=== PATIENT | male | born 1960 | race Caucasian/White ===

== ENCOUNTER → 2016-03-27 | Outpatient (CLI) | payer OTHER ==
--- NOTE | 2016-03-27 17:17 | REP ---
Clinical: Neck sprain/strain. Technique: AP, lateral, flexion/extension, bilateral oblique, and open-mouth views. Findings: Alignment and lordosis maintained. Advanced multilevel degenerative disc osteophyte complexes noted from the C3 through C7 levels. Findings include osteophytosis endplate sclerosis and disc space narrowing. Spinous processes are intact. Open mouth view demonstrates normal C1-C2 articulation and odontoid process. Prevertebral soft tissues normal. No acute fracture / compression injury or subluxation. Impression: Advanced multilevel degenerative disc osteophyte complexes. Signed by Tay Pandya MD 03/27/2016 05:09 P
--- NOTE | 2016-03-27 17:18 | REP ---
Clinical: Sprain/strain. Technique: AP, lateral, swimmers views. Findings: Alignment and kyphosis maintained. Vertebral bodies are intact and without acute fracture / compression injury or subluxation. Anterior and marginal osteophytes are identified along with endplate sclerosis and minimal disc space narrowing. Impression: Multilevel osteophytic degenerative changes. Signed by Tay Pandya MD 03/27/2016 05:09 P
== END ==
LOC: M WUC 16:37
PROVIDERS: ATTEND Physician Assistant
DX: S16.1XXA Strain of muscle, fascia and tendon at neck level, initial encounter (principal); S29.012A Strain of muscle and tendon of back wall of thorax, initial encounter; X58.XXXA Exposure to other specified factors, initial encounter; Y92.89 Other specified places as the place of occurrence of the external cause; Y93.89 Activity, other specified; Y99.8 Other external cause status

== ENCOUNTER → 2016-04-08 | Outpatient (REF) | payer OTHER | LOC: M LABDRAW1 11:13 | PROVIDERS: ATTEND Physician Assistant | DX: M47.892 Other spondylosis, cervical region (principal) ==

== ENCOUNTER 2016-12-11 10:25 | Emergency (ER) | payer OTHER ==
[~2016-12-11] VITALS: Ht 167.6 cm; Wt 115.9 kg
[2016-12-11] MEDS ORDERED: NAPR500T3 (10:36)
[2016-12-11] MEDS ORDERED: OMEP20CA3 (10:36)
[2016-12-11] MEDS ORDERED: PERCOCET 5MG/325MG TAB PO ONE (12:00)
[2016-12-11] MEDS ORDERED: PERC5TAB12 PO (13:16)
--- NOTE | 2016-12-11 13:36 | REP ---
RIGHT KNEE, FIVE VIEWS: There is no evidence of an acute fracture, dislocation or intrinsic bone disease. IMPRESSION: No fracture or dislocation. Signed by Hayes Ramírez MD 12/11/2016 05:18 P
[2016-12-11 13:43] VITALS: BP 151/68
== END 2016-12-11 13:45 | disposition home or self-care (01) ==
LOC: M ED 10:25
DX: M25.561 Pain in right knee (principal); W01.198A Fall on same level from slipping, tripping and stumbling with subsequent striking against other object, initial encounter; Y92.091 Bathroom in other non-institutional residence as the place of occurrence of the external cause; Y93.E1 Activity, personal bathing and showering; Y99.9 Unspecified external cause status

== ENCOUNTER → 2017-02-03 | Outpatient (CLI) | payer OTHER ==
[~2017-02-03] MED LIST: NAPR500T3; OMEP20CA3; PERC5TAB12 PO
--- NOTE | 2017-02-03 21:44 | ECGEPIP ---
Stationary ECG Study [facility] Test Date: 2017-02-03 Pat Name: KYLIE MCELROY Department: Room: - Gender: M Banquet Cook: ARELY : 1960 Requested By: RAMESH Sutherland Order Number: [id number] Reading MD: Dwight Santillan Measurements Intervals [place] Rate: 75 P: 50 ID: [id number] QRS: 13 QRSD: 108 T: 10 QT: 366 QTc: 410 Interpretive Statements Normal sinus rhythm with sinus arrhythmia Nonspecific T wave abnormality Comparison tracing not on file Electronically Signed On 02-03-2017 21:44:18 EST by Dwight Santillan
== END ==
LOC: M EKG 15:41
PROVIDERS: ATTEND Orthopaedic Surgery
DX: Z01.810 Encounter for preprocedural cardiovascular examination (principal); I49.9 Cardiac arrhythmia, unspecified; M23.221 Derangement of posterior horn of medial meniscus due to old tear or injury, right knee; M22.41 Chondromalacia patellae, right knee

== ENCOUNTER → 2018-01-20 | Outpatient (CLI) | payer OTHER | LOC: M EKG 16:39 | DX: Z01.818 Encounter for other preprocedural examination (principal) | CPT/HCPCS: 93005 ==

== ENCOUNTER 2018-02-01 05:37 | Day surgery (SDC) | payer OTHER ==
[2018-02-01] MEDS: LR 1,000 ML IV (06:44)
[2018-02-01] MEDS ORDERED: LIDOCAINE 2% INJ 100 MG/5 ML SDV (FOR ANES.) As Ordered ×2 (06:53)
[2018-02-01] MEDS ORDERED: PROPOFOL 200 MG/20 ML VIAL As Ordered ×2 (06:53→08:38)
[2018-02-01] MEDS ORDERED: fentaNYL 100 MCG/2 ML INJECTION (J3010) As Ordered ×2 (06:54→08:04)
[2018-02-01] MEDS ORDERED: KETOROLAC 60 MG/2 ML VIAL (J1885) As Ordered (06:54)
[2018-02-01] MEDS ORDERED: dexameTHASONE 4 MG/ML 1ML VIAL (J1100) As Ordered (06:54)
[2018-02-01] MEDS ORDERED: MIDAZOLAM INJ 2 MG/2 ML VIAL (J2250) As Ordered (06:54)
[2018-02-01] MEDS ORDERED: ONDANSETRON 4MG/2ML VIAL (J2405) As Ordered (06:54)
[2018-02-01] MEDS ORDERED: ROCURONIUM BROMIDE 50 MG/5 ML VIAL As Ordered (07:32)
[2018-02-01] MEDS ORDERED: SUCCINYLCHOLINE 100 MG/5 ML SYRINGE (J0330) As Ordered (08:37)
[2018-02-01] MEDS ORDERED: SUGAMMADEX SODIUM 500 MG/5 ML VIAL (BRIDION) As Ordered (08:38)
[2018-02-01] MEDS: BUPIVACAINE HCL 0.5% 30 ML VIAL As Ordered (09:17)
[2018-02-01] MEDS ORDERED: HYDROMORPHONE HCL 0.5 MG/ 0.5 ML SYRINGE (J1170 PER 1) IV ×2 (10:00→11:15)
[2018-02-01] MEDS ORDERED: ONDANSETRON 4MG/2ML VIAL (J2405) IV ×2 (10:00→11:15)
[2018-02-01] MEDS ORDERED: LR 1,000 ML IV ×3 (10:00→11:15)
[2018-02-01] MEDS ORDERED: fentaNYL 100 MCG/2 ML INJECTION (J3010) IV ×2 (10:00→11:15)
[2018-02-01] MEDS: PERCOCET 5MG/325MG TAB PO (10:17)
[2018-02-01] MEDS ORDERED: PERCOCET 5MG/325MG TAB As Ordered (11:04)
[2018-02-01] MEDS ORDERED: PERCOCET 5MG/325MG TAB PO (11:15)
== END 2018-02-01 12:07 | disposition home or self-care (01) ==
LOC: M SDC 05:37
DX: M84.362A Stress fracture, left tibia, initial encounter for fracture (principal); M23.222 Derangement of posterior horn of medial meniscus due to old tear or injury, left knee; M23.201 Derangement of unspecified lateral meniscus due to old tear or injury, left knee; M94.262 Chondromalacia, left knee; M17.12 Unilateral primary osteoarthritis, left knee; K21.9 Gastro-esophageal reflux disease without esophagitis; Z79.899 Other long term (current) drug therapy
CPT/HCPCS: 29855

== ENCOUNTER → 2018-04-26 | Outpatient (CLI) | payer OTHER ==
[~2018-04-26] MED LIST changes: +NAPR-885; -NAPR500T3; +OMEP20CA3 PO; +VITA400C7 PO
--- NOTE | 2018-05-02 10:41 | SLEEPCENT ---
DATE OF PROCEDURE: 04/26/2018 ORDERED BY: TRENTON Dee Nocturnal polysomnography was performed for evaluation of sleep physiology in this patient with a history of excessive somnolence and nonrestorative sleep. 7 hours and 42 minutes of data were reviewed. There were 327 minutes of sleep identified. Sleep latency was prolonged at 30 minutes. Rapid eye movement (REM) latency was prolonged at 115 minutes. Sleep architecture was fair with 4 REM cycles. A period of wake between 3:15 and 4 a.m. resulted in a reduced sleep efficiency of 71%. The patient's electrocardiogram showed sinus rhythm with occasional premature ventricular contractions (PVCs), average heart rate 70 beats per minute. EEG showed reasonably normal waveforms for awake and sleep. There were 61 respiratory events identified of 10 seconds in duration or greater for an apnea-hypopnea index of 11.2. The events were not exclusive to sleep stage nor body posture. Arousals from respiratory events occurred 3.5 times per hour. Oxygen desaturations were seen into the low 80s and remaining measures of sleep physiology were normal. IMPRESSION: Obstructive sleep apnea syndrome (G47.33) apnea-hypopnea index 11.2/hr. RECOMMENDATIONS: The patient should be encouraged to return to the sleep disorder center for pressure therapy. In the interim, alcohol and sedative avoidance should be practiced and caution exercised during the operation of motor vehicles. MADELYND
== END ==
LOC: M SLEEP 19:45
PROVIDERS: ATTEND Physician Assistant
DX: R40.0 Somnolence (principal)

== ENCOUNTER → 2018-06-04 | Outpatient (CLI) | payer OTHER ==
--- NOTE | 2018-06-08 13:22 | SLEEPCENT ---
DATE OF PROCEDURE: 06/04/2018 ORDERED BY: Tay Villa Nocturnal polysomnography was performed for the titration of pressure therapy in this patient with obstructive sleep apnea syndrome and apnea-hypopnea index of 11.2. For testing, the patient was fit with a [employer] Eson nasal mask of medium size and 4 cm of water pressure were applied to the circuit and the lights were extinguished. 7 hours and 57 minutes of data were reviewed. There were 363 minutes of sleep identified. Sleep latency was short at 7.5 minutes. Rapid eye movement (REM) latency was normal at 132 minutes. Sleep architecture was fair. There were 4 brief REM cycles noted. Overall sleep efficiency was 76.8%. The patient's electrocardiogram showed a sinus rhythm with an average heart rate of 70 beats per minute. Electroencephalogram (EEG) showed normal waveforms for awake and sleep. Respiratory events were well palliated with C-PAP at a pressure of +7 and remaining measures of sleep physiology were essentially normal. IMPRESSION: Obstructive sleep apnea syndrome (G47.33). RECOMMENDATION: Nightly use of pressure therapy at 7 cm of water.
== END ==
LOC: M SLEEP 20:00
PROVIDERS: ATTEND Nurse Practitioner Family
DX: G47.33 Obstructive sleep apnea (adult) (pediatric) (principal)

== ENCOUNTER 2019-03-30 05:52 | Emergency (ER) | payer OTHER ==
[~2019-03-30] VITALS: Ht 167.6 cm; Wt 113.6 kg
[~2019-03-30 05:52] MED LIST changes: +OMEP1CAP73; +OMEP1CAP73 PO; -OMEP20CA3; -OMEP20CA3 PO
[2019-03-30] MEDS ORDERED: ACETAMINOPHEN 500 MG TAB PO ONE (07:30)
[2019-03-30 07:32] LABS: BASO % 0.7 % (0.0-1.0); EOS # 0.1 10^3/uL (0.0-0.5); HEMATOCRIT 51.6 % (42.0-52.0); LYMPH # 1.4 10^3/uL (1.5-5.0); MEAN CORPUSCULAR HEMOGLOBIN 30.8 pg (27.0-33.0); MEAN CORPUSCULAR HGB CONC 32.9 g/dl (32.0-36.5); MEAN CORPUSCULAR VOLUME 93.5 fl (80.0-96.0); MONO # 0.6 10^3/uL (0.0-0.8); MONO % 9.8 % (0.0-5.0); NEUTROPHILS % 65.2 % (36.0-66.0); PLATELET COUNT, AUTOMATED 274 10^3/uL (150-450); RED BLOOD COUNT 5.52 10^6/uL (4.30-6.10); WHITE BLOOD COUNT 6.1 10^3/uL (4.0-10.0)
--- NOTE | 2019-03-30 07:45 | REPVR ---
PROCEDURE INFORMATION: Exam: CT Abdomen And Pelvis Without Contrast Exam date and time: 03/30/2019 7:09 AM Age: 58 years old Clinical indication: Abdominal pain; Flank; Left; Additional info: Left fp TECHNIQUE: Imaging protocol: Computed tomography of the abdomen and pelvis without contrast. Radiation optimization: All CT scans at this facility use at least one of these dose optimization techniques: automated exposure control; mA and/or kV adjustment per patient size (includes targeted exams where dose is matched to clinical indication); or iterative reconstruction. COMPARISON: No relevant prior studies available. FINDINGS: Mediastinum: There is a small sliding hiatal hernia. Liver: the liver is heterogeneous and hypoattenuated. Gallbladder and bile ducts: Normal. No calcified stones. No ductal dilation. Pancreas: Normal. No ductal dilation. Spleen: Normal. No splenomegaly. Adrenals: Normal. No mass. Kidneys and ureters: There is a 2-3 mm stone in the left UVJ or layering in the urinary bladder with mild proximal hydronephrosis and hydroureter. Stomach and bowel: Mild sigmoid colon diverticulosis seen. Appendix: No evidence of appendicitis. Intraperitoneal space: Unremarkable. No free air. No significant fluid collection. Vasculature: There is minimal aortic mural calcifications. Lymph nodes: Unremarkable. No enlarged lymph nodes. Bladder: The urinary bladder is contracted limiting its evaluation. Reproductive: Unremarkable as visualized. Bones/joints: Unremarkable. No acute fracture. Soft tissues: Unremarkable. IMPRESSION: 1. 2-3 mm left UVJ versus recently passed stone with mild left-sided hydronephrosis. 2. Mild sigmoid colon diverticulosis. 3. Small sliding hiatal hernia. 4. Fatty infiltration of the liver. Electronically signed by: Keron Pradhan On 03/30/2019 07:45:11 AM
[2019-03-30 08:02] LABS: BLOOD UREA NITROGEN 12 MG/DL (7-18); CALCIUM LEVEL 9.1 MG/DL (8.5-10.1); CARBON DIOXIDE LEVEL 24 MEQ/L (21-32); CHLORIDE LEVEL 110 MEQ/L (98-107); GLOMERULAR FILTRATION RATE > 60.0 (>56); GLUCOSE, FASTING 109 MG/DL (70-100); SODIUM LEVEL 141 MEQ/L (136-145)
[2019-03-30] MEDS ORDERED: KETOROLAC 30 MG/ML VIAL (J1885) IV ONE (08:15)
[2019-03-30] MEDS ORDERED: FLOM0.4C39 PO (08:20)
[2019-03-30] MEDS ORDERED: PERC5TAB12 PO (08:21)
[2019-03-30] MEDS ORDERED: ONDANSETRON 4MG/2ML VIAL (J2405) IV ONE (09:15)
[2019-03-30] MEDS ORDERED: PERCOCET 5MG/325MG TAB PO ONE (09:15)
[2019-03-30 09:51] VITALS: BP 153/80
== END 2019-03-30 09:57 | disposition home or self-care (01) ==
LOC: M ED 05:52
DX: N20.1 Calculus of ureter (principal); K21.9 Gastro-esophageal reflux disease without esophagitis; G47.33 Obstructive sleep apnea (adult) (pediatric); K57.30 Diverticulosis of large intestine without perforation or abscess without bleeding; K44.9 Diaphragmatic hernia without obstruction or gangrene; K76.0 Fatty (change of) liver, not elsewhere classified; Z79.899 Other long term (current) drug therapy
CPT/HCPCS: 74176; 80048; 81001; 85025; 99284; J1885; J2405

== ENCOUNTER 2020-03-01 10:17 | Emergency (ER) | payer OTHER ==
[~2020-03-01] VITALS: Ht 170.2 cm; Wt 113.6 kg
[~2020-03-01 10:17] MED LIST changes: +FLOM0.4C39 PO
[2020-03-01 11:01] LABS: BASO % 0.3 % (0.0-1.0); HEMATOCRIT 46.1 % (42.0-52.0); HEMOGLOBIN 15.6 g/dl (13.5-17.5); LYMPH # 0.6 10^3/uL (1.5-5.0); LYMPH % 10.3 % (24.0-44.0); MEAN CORPUSCULAR HEMOGLOBIN 30.9 pg (27.0-33.0); MEAN CORPUSCULAR HGB CONC 33.8 g/dl (32.0-36.5); MEAN CORPUSCULAR VOLUME 91.3 fl (80.0-96.0); MONO # 0.5 10^3/uL (0.0-0.8); MONO % 7.7 % (0.0-5.0); NEUTROPHILS # 4.9 10^3/uL (1.5-8.5); NEUTROPHILS % 81.4 % (36.0-66.0); PLATELET COUNT, AUTOMATED 250 10^3/uL (150-450); RED BLOOD COUNT 5.05 10^6/uL (4.30-6.10)
--- NOTE | 2020-03-01 11:02 | REP ---
INDICATION: Coronavirus workup. COMPARISON: No comparison chest x-ray. TECHNIQUE: Portable upright AP chest radiograph. FINDINGS: There are increased markings in the left base consistent with an infiltrate. There is platelike atelectasis in the left base as well. A ill-defined small opacityaaaaa is seen in the right perihilar region. Question infiltrate here. Heart size is not enlarged. Pulmonary vasculature is not increased. Pleural angles are sharp.. IMPRESSION: Infiltrate and platelike atelectasis left base. Question subtle infiltrate right perihilar region.. <Electronically signed by Mickey Cai > 03/01/20 [id number]
[2020-03-01 11:26] LABS: ALBUMIN 3.2 GM/DL (3.2-5.2); ALT/SGPT 35 U/L (12-78); BILIRUBIN,TOTAL 0.9 MG/DL (0.2-1.0); BLOOD UREA NITROGEN 22 MG/DL (7-18); C REACTIVE PROTEIN QUANTITATIV 6.26 MG/DL (0.00-0.30); CALCIUM LEVEL 9.3 MG/DL (8.8-10.2); CARBON DIOXIDE LEVEL 25 MEQ/L (21-32); CHLORIDE LEVEL 108 MEQ/L (98-107); CK-MB VALUE MASS < 1.0 NG/ML (<3.6); CPK CREATINE PHOSPHOKINASE 182 U/L (39-308); CREATININE FOR GFR 1.07 MG/DL (0.70-1.30); FERRITIN 601 NG/ML (26-388); GLOMERULAR FILTRATION RATE > 60.0 (>49); GLUCOSE, FASTING 123 MG/DL (70-100); LDH LACTATE DEHYDROGENASE 609 U/L (87-241); MB/CK RELATIVE INDEX 0.55 (< OR =4); POTASSIUM SERUM 4.8 MEQ/L (3.5-5.1); SODIUM LEVEL 139 MEQ/L (136-145); TOTAL PROTEIN 7.3 GM/DL (6.4-8.2); TROPONIN I < 0.02 NG/ML (< 0.10)
[2020-03-01] MEDS ORDERED: NS 1,000 ML IV SCH (12:50)
[2020-03-01] MEDS ORDERED: diphenhydrAMINE 50MG/ML VIAL (J1200) IV PRN (13:00)
[2020-03-01] MEDS ORDERED: ALBUTEROL 90 MCG/ACT 8GM HFA INHALER INH PRN (13:00)
[2020-03-01] MEDS ORDERED: methylPREDNISolone 125MG 2ML VIAL IV PRN (13:00)
[2020-03-01] MEDS ORDERED: CASIRIVIMAB (REGN10933) 1,200 MG, IMDEVIMAB (REGN10987) 1,200 MG in NS 230 ML IV ONE (13:00)
[2020-03-01] MEDS ORDERED: EPINEPHrine INJ 1 MG/ML 1ML AMP IM PRN (13:00)
[2020-03-01] MEDS ORDERED: ALBUTEROL SULFATE 2.5 MG/0.5 ML INH NEB SOLN INH PRN (13:00)
[2020-03-01 14:00] VITALS: BP 136/76
== END 2020-03-01 15:00 | disposition other institution (70) ==
LOC: M ED 10:17
DX: U07.1 COVID-19 (principal); J18.9 Pneumonia, unspecified organism; K21.9 Gastro-esophageal reflux disease without esophagitis

== ENCOUNTER 2020-03-01 14:38 | Outpatient (CLI) | payer OTHER ==
[2020-03-01] VITALS (7 sets, daily range): BP systolic 123–136; BP diastolic 58–67
[~2020-03-01 14:38] MED LIST changes: +ALBUTEROL 90 MCG/ACT 8GM HFA INHALER INH PRN; +ALBUTEROL SULFATE 2.5 MG/0.5 ML INH NEB SOLN INH PRN; +CASIRIVIMAB (REGN10933) 1,200 MG, IMDEVIMAB (REGN10987) 1,200 MG in NS 230 ML IV ONE; +EPINEPHrine INJ 1 MG/ML 1ML AMP IM PRN; +NS 1,000 ML IV SCH; +diphenhydrAMINE 50MG/ML VIAL (J1200) IV PRN; +methylPREDNISolone 125MG 2ML VIAL IV PRN
--- NOTE | 2020-03-01 15:34 | IPNPDOC ---
Subjective Date Seen The patient was seen on 03/01/20. Subjective Chief Complaint/HPI Mr. Kaur is a 59 year old male here with COVID pneumonia. On 02/20/2020, he had dyspnea and malaise and tested positive for COVID on that day. He went home to self isolated. He comes to our ER today for worsening dyspnea at rest and on exertion. He had a dry cough and reported fever of 100.4 at home. Fever resolved with Tylenol. While here, he has had no fever. He breaths at room air with pulse ox of 94. When ambulates, he had a pulse ox of 92 to 94 as well. No leukocytosis, but CRP, ferritin, LDH, and D-dimer were elevated. I discussed with him about Bamlanivimab-Casirivimab infusion and the risks involved including allergic reaction. He is agreeable to the transfusion. He signed consent and will be receiving the transfusion in the ICU. PMH 1. GERD PSH 1. Bilateral Knee Surgery Social history -Tobacco: Denies ever smoking -Alcohol: Occasional, last drink was about 1 month ago -Illicit drugs: Denies Family history -Father: Heart disease -Mother: COPD Allergies: NKDA Home medication: Omeprazole 20mg PO Daily PRN heart burn Constitutional: Reports: Fever, Malaise Eyes: Denies: Pain ENT: Denies: Sore Throat Skin: Denies: Rash Pulmonary: Reports: Dyspnea, Cough Cardiovascular: Denies: Chest Pain, Lt Headedness Gastrointestinal: Denies: Abdominal Pain Genitourinary: Denies: Dysuria Neurological: Denies: Change in speech, Confusion Objective Physical Examination General Exam: Positive: Alert, Cooperative, No Acute Distress Eye Exam: Positive: EOMI; Negative: Sclera icteric ENT Exam: Positive: Tongue Midline Neck Exam: Positive: Supple Chest Exam: Positive: Clear to auscultation Heart Exam: Positive: Rate Normal, Regular Rhythm Abdomen Exam: Positive: Normal bowel sounds, Soft; Negative: Tenderness Extremity Exam: Negative: Edema Skin Exam: Positive: Nl turgor and temperature Neuro Exam: Positive: Cranial Nerves 3-12 NL Psych Exam: Positive: Mental status NL, Mood NL Assessment /Plan Assessment Mr. Kaur is a 59 year old male here with COVID pneumonia. He was tested positive 10 days ago and met criteria for Bamlanivimab-Casirvimab infusion. Patient will be infused and monitored in the ICU for allergic reaction or adverse reaction to infusion. If there are no reactions, he will be able to return home Plan/VTE VTE Prophylaxis Ordered?: No VTE Exclusion Mechanical Proph: Other (Returning home today) VTE Exclusion Pharmacological: Other (returning home today) Plan 1. COVID pneumonia -No hypoxia or oxygen requirements -Denies history of respiratory disease -No leukocytosis -Inflammatory markers elevated -Bamlanivimab-Casirvimab infusion today -Monitor in ICU for reaction 2. GERD -PRN omeprazole VS, I&O, 24H, Fishbone Vital Signs/I&O Vital Signs Date Time Temp Pulse Resp B/P (MAP) Pulse Ox O2 Delivery O2 Flow Rate FiO2 03/01/20 14:50 99.4 90 20 125/58 (80) 94 Room Air SANTA SANDERSON DO Mar 01, 2020 15:34
== END 2020-03-01 17:48 | disposition home or self-care (01) ==
LOC: M OPCLIICU 14:38 → M ICU 14:38 → M OPCLIICU 17:48
PROVIDERS: ATTEND Internal Medicine
DX: U07.1 COVID-19 (principal)

== ENCOUNTER 2020-03-05 12:26 | Observation (INO) | payer OTHER ==
[~2020-03-05] VITALS: Ht 167.6 cm; Wt 117.2 kg
[~2020-03-05 12:26] MED LIST changes: -ALBUTEROL 90 MCG/ACT 8GM HFA INHALER INH PRN; -ALBUTEROL SULFATE 2.5 MG/0.5 ML INH NEB SOLN INH PRN; -CASIRIVIMAB (REGN10933) 1,200 MG, IMDEVIMAB (REGN10987) 1,200 MG in NS 230 ML IV ONE; -EPINEPHrine INJ 1 MG/ML 1ML AMP IM PRN; -NS 1,000 ML IV SCH; -diphenhydrAMINE 50MG/ML VIAL (J1200) IV PRN; -methylPREDNISolone 125MG 2ML VIAL IV PRN
[2020-03-05] MEDS ORDERED: NS 1,000 ML IV SCH (13:03)
[2020-03-05] MEDS ORDERED: ALBUTEROL 90 MCG/ACT 8GM HFA INHALER INH ONE (13:15)
[2020-03-05] MEDS ORDERED: ASPIRIN 81 MG CHEW TABLET PO ONE (13:15)
[2020-03-05] MEDS ORDERED: COMBIVENT RESPIMAT 100-20MCG INHALER 4GM INH ONE (13:15)
[2020-03-05 13:46] LABS: ABG BASE EXCESS 0.8 (-2.0-2.0); ABG HCO3 23.7 MEQ/L (22.0-26.0); ABG O2 SATURATION 94.9 % (95.0-99.0); ABG PARTIAL PRESSURE CO2 33.4 mmHg (35.0-45.0); ABG STANDARD HCO3 25.1 MEQ/L (22.0-26.0); ABG TOTAL CO2 24.7 MEQ/L (23.0-31.0); ABG pH (ARTERIAL) 7.469 UNITS (7.350-7.450)
[2020-03-05 14:04] LABS: BASO % 0.4 % (0.0-1.0); EOS # 0.1 10^3/uL (0.0-0.5); EOS % 1.2 % (0.0-3.0); HEMATOCRIT 45.8 % (42.0-52.0); HEMOGLOBIN 14.9 g/dl (13.5-17.5); LYMPH # 1.4 10^3/uL (1.5-5.0); LYMPH % 17.5 % (24.0-44.0); MEAN CORPUSCULAR HEMOGLOBIN 29.9 pg (27.0-33.0); MEAN CORPUSCULAR HGB CONC 32.5 g/dl (32.0-36.5); MONO # 0.8 10^3/uL (0.0-0.8); MONO % 10.4 % (0.0-5.0); NEUTROPHILS # 5.5 10^3/uL (1.5-8.5); NEUTROPHILS % 69.6 % (36.0-66.0); PLATELET COUNT, AUTOMATED 372 10^3/uL (150-450); RED BLOOD COUNT 4.98 10^6/uL (4.30-6.10); WHITE BLOOD COUNT 7.8 10^3/uL (4.0-10.0)
[2020-03-05 14:32] LABS: ALBUMIN 3.4 GM/DL (3.2-5.2); ALT/SGPT 39 U/L (12-78); BILIRUBIN,DIRECT 0.4 MG/DL (0.0-0.2); BILIRUBIN,TOTAL 0.8 MG/DL (0.2-1.0); BLOOD UREA NITROGEN 15 MG/DL (7-18); CALCIUM LEVEL 8.7 MG/DL (8.8-10.2); CARBON DIOXIDE LEVEL 27 MEQ/L (21-32); CHLORIDE LEVEL 109 MEQ/L (98-107); CREATININE FOR GFR 0.83 MG/DL (0.70-1.30); GLOMERULAR FILTRATION RATE > 60.0 (>49); GLUCOSE, FASTING 96 MG/DL (70-100); POTASSIUM SERUM 3.7 MEQ/L (3.5-5.1); SODIUM LEVEL 141 MEQ/L (136-145); TOTAL PROTEIN 7.3 GM/DL (6.4-8.2)
[2020-03-05 14:33] LABS: CK-MB VALUE MASS < 1.0 NG/ML (<3.6); CPK CREATINE PHOSPHOKINASE 96 U/L (39-308); MB/CK RELATIVE INDEX 1.04 (< OR =4); NT-PRO BNP 69 PG/ML (<125); TROPONIN I < 0.02 NG/ML (< 0.10)
[2020-03-05 14:40] LABS: RSV AMPLIFICATION NEGATIVE (NEGATIVE)
--- NOTE | 2020-03-05 15:16 | REP ---
INDICATION: DYSPNEA/COUGH COMPARISON: 03/01/2020 TECHNIQUE: Portable AP view of the chest FINDINGS: Mediastinum and cardiac silhouette stable. Diffuse interstitial and alveolar infiltrates are suggested. No effusion. No pneumothorax. IMPRESSION: [id number] diffuse alveolar and interstitial infiltrates slightly more prominent than prior examination. <Electronically signed by Tay Pandya > 03/05/20 0364
[2020-03-05] MEDS ORDERED: ISOVUE-370 76% 100ML VIAL As Ordered ONE (15:35)
--- NOTE | 2020-03-05 16:22 | REP ---
INDICATION: sob COMPARISON: None. TECHNIQUE: Axial contrast enhanced images from the thoracic inlet to the upper abdomen using pulmonary embolus technique with multiplanar re-formations. 75 ml Isovue 370 intravenous contrast material administered without complication. This CT examination was performed using the following dose reduction techniques: Automated exposure control, adjustment of mA and/or kv according to the patient's size, and use of iterative reconstruction technique. FINDINGS: Evaluation is limited by motion artifact. However, no obvious main or 2nd/3rd order arterial emboli are identified. The lung corea demonstrate diffuse bilateral perihilar and peripheral infiltrates compatible with multifocal pneumonia as well as findings related to COVID-19. Moderate reactive mediastinal and hilar adenopathy noted. Chronic cardiomegaly is appreciated without pericardial effusion. Thoracic aorta without aneurysm or dissection. Surrounding musculoskeletal structures are intact. Limited upper abdomen demonstrates normal bilateral adrenal glands. IMPRESSION: 1. Limited by respiratory motion, but without evidence for pulmonary embolus. 2. Moderate to significant bilateral alveolar infiltrates and consolidations compatible with multifocal pneumonia and COVID-19 disease. Correlation and follow-up to resolution is recommended. 3. Cardiomegaly. <Electronically signed by Tay Pandya > 03/05/20 1308
--- NOTE | 2020-03-05 17:43 | HPEPDOC ---
[facility] Medical History & Physical Date of Admission Mar 05, 2020 Date of Service: Mar 05, 2020 History and Physical CHIEF COMPLAINT: Shortness of breath HISTORY OF PRESENT ILLNESS: 59-year-old male presented to the ER with worsening worsening shortness of breath for the past 4-5 days. He was diagnosed with COVID-19on February 19 and subsequently symptoms had improved. Patient states that he has been having nonproductive cough, does not reported fevers or chills. Shortness of breath is most pronounced when he attempts to lie down flat. Patient denies a prior history of coronary artery disease, congestive heart failure, COPD. No chest pain or palpitations, syncope. Of note, patient was seen in the ED on 03/01 and received Bamlaniviman infusion. He denies wheezing, pruritis. On arrival, patient is afebrile, temperature 99.1. Pulse is 90. Respiratory rate 16. Blood pressure 153/71. Pulse ox 93% on room air. Lab work reviewed. CBC 7.8. Hemoglobin 14.9. Platelet count 272. Sodium 141. Potassium 3.7. Creatinine 0.83. Covert PCR positive. CT angiogram of the chest was obtained, given the high risk for pulmonary e mbolism in the setting of hypercoagulable state due to covert infection. CTA PE reviewed. No evidence for pulmonary embolism. CT did show moderate to severe bilateral alveolar infiltrates and consolidations compatible with multifocal pneumonia and covid-19 disease. PAST MEDICAL HISTORY: GERD PAST SURGICAL HISTORY: Bilateral knee surgery SOCIAL HISTORY: Patient denies smoking Does drink one month ago Patient denies illicit drug use FAMILY HISTORY: Reviewed family history with patient. Father, history of heart disease. Mother, history of COPD ALLERGIES: Please see below. REVIEW OF SYSTEMS: CONSTITUTIONAL: patient denies fevers, chills HEENT: patient denies blurred vision, loss of vision, headache,. CARDIOVASCULAR: patient denies chest pain, palpitations. RESPIRATORY: Non-productive cough GASTROINTESTINAL: patient denies abdominal pain, n/v/d, blood in stool. GENITOURINARY: patient denies dysuria, discharge. SKIN: patient denies rashes. MUSCULOSKELETAL: patient denies joint pain, neck pain. NEUROLOGICAL: patient denies focal weakness, numbness, seizures. PSYCHIATRIC: patient denies SI/HI. ENDOCRINE: patient denies polyuria, heat intolerance, cold intolerance. HEMATOLOGIC/LYMPHATIC: patient denies easy bruising. HOME MEDICATIONS: Please see below. PHYSICAL EXAMINATION: VITAL SIGNS: please see below General: NAD, comfortable HEENT: PERRLA, EOMI, sclerae clear Neck: supple, normal ROM, no JVD Respiratory: Coarse breath sounds, rales in bilateral lung corea. No wheezes. Good inspiratory effort. CVS: RRR, normal S1, S2, no murmurs Abdo: soft, no masses, no hepatosplenomegaly, BS+, no rebound tenderness Extremities: no edema, pulses 2+ MSK: no joint deformities, normal ROM Neuro: no focal neuro deficits, moving all 4 extremities, CN2-12 intact. Strength 5/5 in all 4 extremities. No nystagmus. Psych: calm, cooperative, AAO x 3 LABORATORY DATA: See below. IMAGING: CTA/PE 03/05/20: 1. Limited by respiratory motion, but without evidence for pulmonary embolus. 2. Moderate to significant bilateral alveolar infiltrates and consolidations compatible with multifocal pneumonia and COVID-19 disease. Correlation and follow-up to resolution is recommended. 3. Cardiomegaly. CXR 03/05/20: 1. [id number] diffuse alveolar and interstitial infiltrates slightly more prominent than prior examination. MICROBIOLOGY: Please see below. ASSESSMENT: 59-year-old male with a history of GERD, diagnosed with Covid 19 infection on 02/20/20 and received Casirivimab/Imdevimab infusion on 03/01/20, returns to the ED with worsening dyspnea for the past [address] imaging of the chest showing bilateral multifocal pneumonia and findings c/w covid-19. PLAN: #Covid-19 infection: dx 02/19, s/p Casirivimab/Imdevimba infusion on 03/11/20. #Dyspnea: 2/2 covid-19 vs superimposed bacterial infection. S/p Casirivimab/Imdevimab infusion on 03/11/20. No wheeze or pruritis. No upper airway discomfort. Patient is afebrile, without leukocytosis. Saturating at 93% on RA. CTA/PE showing bilateral multifocal pna. Given appropriate SpO2 will not treat with dexamethasone or remdisivir at this time. Start levaquin PO 750 mg. Trend inflammatory markers. Check procalcitonin. Check strep ag, legionella,blood cultures. #Suspected pulmonary HTN given obesity: Check 2D echo. May be contributing to dyspnea. #Obesity: BMI 40.3. Complicating care. DVT ppx: lovenox SC daily. Vital Signs Vital Signs Date Time Temp Pulse Resp B/P (MAP) Pulse Ox O2 Delivery O2 Flow Rate FiO2 03/05/20 13:30 Room Air 03/05/20 13:15 03/05/20 12:26 99.1 90 16 93 Laboratory Data Labs 24H Laboratory Tests 2 03/05/20 13:26: Blood Gas Bicarbonate Standard 25.1, Arterial Blood pH 7.469H, Arterial Blood Partial Pressure CO2 33.4L, Arterial Blood Partial Pressure O2 70.0L, Arterial Blood Total CO2 24.7, Arterial Blood HCO3 23.7, Arterial Blood Base Excess 0.8, Arterial Blood Oxygen Saturation 94.9L 03/05/20 13:32: Immature Granulocyte % (Auto) 0.9, Neutrophils (%) (Auto) 69.6H, Lymphocytes (%) (Auto) 17.5L, Monocytes (%) (Auto) 10.4H, Eosinophils (%) (Auto) 1.2, Basophils (%) (Auto) 0.4, Neutrophils # (Auto) 5.5, Lymphocytes # (Auto) 1.4L, Monocytes # (Auto) 0.8, Eosinophils # (Auto) 0.1, Basophils # (Auto) 0.0, Nucleated Red Blood Cells % (auto) 0.0, Anion Gap 5L, Glomerular Filtration Rate > 60.0, Lactic Acid Level 1.9, Calcium Level 8.7L, Total Bilirubin 0.8, Direct Bilirubin 0.4H, Aspartate Amino Transf (AST/SGOT) 40H, Alanine Aminotransferase (ALT/SGPT) 39, Alkaline Phosphatase 50, Total Creatine Kinase 96, Creatine Kinase MB < 1.0, Creatine Kinase MB Relative Index 1.04, Troponin I < 0.02, OK-Bjk-R-Type Natriuretic Peptide 69, Total Protein 7.3, Albumin 3.4, Albumin/Globulin Ratio 0.9, Coronavirus (COVID-19)(PCR) POSITIVEA, Influenza Type A (RT-PCR) NEGATIVE, Influenza Type B (RT-PCR) NEGATIVE, Respiratory Syncytial Virus (PCR) NEGATIVE CBC/BMP Laboratory Tests 03/05/20 13:32 Microbiology Microbiology 03/05/20 Blood Culture, Received Pending Home Medications Scheduled PRN Omeprazole (Omeprazole) 20 Mg Cap, 20 MG PO DAILY PRN for HEARTBURN Allergies Coded Allergies: No Known Allergies (Unverified , 03/30/19) JAMES CA MD Mar 05, 2020 17:42
[2020-03-05] MEDS ORDERED: LevoFLOXacin 750 MG TABLET PO SCH ×2 (18:00)
--- NOTE | 2020-03-05 22:58 | ECGEPIP ---
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
[2020-03-05 23:15] VITALS: BP 122/86
--- NOTE | 2020-03-06 00:18 | REPVR ---
PROCEDURE INFORMATION: Exam: US Duplex Lower Extremity Veins, Bilateral Exam date and time: 03/05/2020 10:49 PM Age: 59 years old Clinical indication: Other: SOB; Additional info: R/O dvt TECHNIQUE: Imaging protocol: Real-time duplex ultrasound of the extremities with 2-D sierra scale, color Doppler flow and spectral waveform analysis with image documentation. Complete exam focused on the bilateral lower extremity veins. COMPARISON: No relevant prior studies available. FINDINGS: Right deep veins: Unremarkable. The common femoral, femoral and popliteal veins are patent without thrombus. Normal Doppler waveforms. Normal compressibility and/or augmentation response. Right superficial veins: Saphenofemoral junction is patent without thrombus. Left deep veins: Unremarkable. The common femoral, femoral and popliteal veins are patent without thrombus. Normal Doppler waveforms. Normal compressibility and/or augmentation response. Left superficial veins: Saphenofemoral junction is patent without thrombus. Soft tissues: Unremarkable. IMPRESSION: No sonographic evidence of deep vein thrombosis. Electronically signed by: Michael Vargas On 03/06/2020 00:18:28 AM
[2020-03-06 04:22] VITALS: BP 129/64
[2020-03-06 08:49] LABS: BASO % 0.6 % (0.0-1.0); EOS # 0.1 10^3/uL (0.0-0.5); EOS % 2.3 % (0.0-3.0); HEMATOCRIT 42.7 % (42.0-52.0); HEMOGLOBIN 14.2 g/dl (13.5-17.5); LYMPH # 1.1 10^3/uL (1.5-5.0); LYMPH % 17.8 % (24.0-44.0); MEAN CORPUSCULAR HEMOGLOBIN 30.3 pg (27.0-33.0); MEAN CORPUSCULAR HGB CONC 33.3 g/dl (32.0-36.5); MONO # 0.7 10^3/uL (0.0-0.8); MONO % 11.7 % (0.0-5.0); NEUTROPHILS # 4.2 10^3/uL (1.5-8.5); NEUTROPHILS % 66.8 % (36.0-66.0); PLATELET COUNT, AUTOMATED 378 10^3/uL (150-450); RED BLOOD COUNT 4.69 10^6/uL (4.30-6.10); WHITE BLOOD COUNT 6.2 10^3/uL (4.0-10.0)
[2020-03-06] MEDS ORDERED: OMEPRAZOLE 20 MG CAP PO SCH (09:00)
[2020-03-06] MEDS ORDERED: ENOXAPARIN 40MG/0.4ML SYRINGE (J1650 PER 10MG) SC SCH (09:00)
[2020-03-06 09:19] LABS: INR 1.22; PROTHROMBIN TIME 15.7 SECONDS (12.5-14.3)
[2020-03-06 09:20] LABS: PARTIAL THROMBOPLASTIN TIME 31.9 SECONDS (24.2-38.5)
[2020-03-06 09:25] LABS: ALT/SGPT 36 U/L (12-78); BILIRUBIN,TOTAL 0.8 MG/DL (0.2-1.0); BLOOD UREA NITROGEN 12 MG/DL (7-18); CALCIUM LEVEL 8.4 MG/DL (8.8-10.2); CARBON DIOXIDE LEVEL 23 MEQ/L (21-32); CHLORIDE LEVEL 110 MEQ/L (98-107); CREATININE FOR GFR 0.68 MG/DL (0.70-1.30); GLOMERULAR FILTRATION RATE > 60.0 (>49); GLUCOSE, FASTING 86 MG/DL (70-100); LDH LACTATE DEHYDROGENASE 303 U/L (87-241); MAGNESIUM LEVEL 2.4 MG/DL (1.8-2.4); NT-PRO BNP 77 PG/ML (<125); POTASSIUM SERUM 3.8 MEQ/L (3.5-5.1); SODIUM LEVEL 143 MEQ/L (136-145); TOTAL PROTEIN 6.4 GM/DL (6.4-8.2); TROPONIN I < 0.02 NG/ML (< 0.10)
[2020-03-06 09:26] LABS: D-DIMER QUANT 702.04 ng/ml (<500)
[2020-03-06 12:00] VITALS: BP 145/78
[2020-03-06] MEDS ORDERED: methylPREDNISolone 40MG 1ML VIAL IV ONE (12:00)
[2020-03-06] MEDS ORDERED: PROAAER10 INH (12:50)
[2020-03-06] MEDS ORDERED: PRED20TA PO (12:50)
--- NOTE | 2020-03-06 12:56 | DS.PDOC ---
Discharge Summary General Date of Admission Mar 05, 2020 at 17:43 Date of Discharge 03/06/20 Discharge Summary Chief complaints Shortness of breath Final diagnosis Covid 19 infection Hyperreactive airway disease Code 19. Interstitial pneumonitis History of present illness and Hospital course 59-year-old male presented to the ER with worsening worsening shortness of breath for the past 4-5 days. He was diagnosed with COVID-19on February 19 and subsequently symptoms had improved. Patient states that he has been having nonproductive cough, does not reported fevers or chills. Patient denies a prior history of coronary artery disease, congestive heart failure, COPD. No chest pain or palpitations, syncope. Of note, patient was seen in the ED on 03/01 and received Bamlaniviman infusion. He denies wheezing, pruritis. The patient on my encounter was saturating 99 on room air. He did, he was afebrile. He got a CAT scan of the chest done which showed that there was no evidence for pulmonary embolus, there were Moderate to significant bilateral alveolar infiltrates and consolidations compatible with multifocal pneumonia and COVID-19 disease. Myocardial injury was noted as well. The patient denied any chest pain, there is no JVD, no hepatojugular reflex or any pedal edema. The patient was able to move out of the bed without any issue. In mild pain. He is medically optimized for discharge and will be given prednisone 20 mg for the next 7 days along with albuterol inhaler. He probably has developed hyperactive airway disease and would require pulmonary follow-up for possible PFTs and repeat CAT scan and x- ray to see the long-term effects of Covid 19. He also will benefit from a sleep study to rule out any sleep apnea, which could also be a reason for his shortness of breath related to his pulmonary hypertension. He also has been advised to go to his PCP to get an echo done to get a baseline cardiac function. He understands and is excited to go home today. PHYSICAL EXAMINATION: General: NAD, comfortable HEENT: PERRLA, EOMI, sclerae clear Neck: supple, normal ROM, no JVD Respiratory: Fine bibasilar rhonchi . No wheezes. Good inspiratory effort. CVS: RRR, normal S1, S2, no murmurs Abdo: soft, no masses, no hepatosplenomegaly, BS+, no rebound tenderness Extremities: no edema, pulses 2+ MSK: no joint deformities, normal ROM Neuro: no focal neuro deficits, moving all 4 extremities, CN2-12 intact. Strength 5/5 in all 4 extremities. No nystagmus. Psych: calm, cooperative, AAO x 3 Mediictations. As per discharge reconciliation medication list Activity as tolerated Diet. 2 g sodium diet Follow-up appointments. PCP in 1 week. Wondering 4 weeks Condition on discharge. Patient is medically optimized for discharge Discharge disposition: Home Total time spent on this discharge including coordination of care, review of chart documentation and actual patient contact is around 35 minutes Vital Signs/I&Os Vital Signs Date Time Temp Pulse Resp B/P (MAP) Pulse Ox O2 Delivery O2 Flow Rate FiO2 03/06/20 12:00 96.6 81 16 145/78 (100) 94 Room Air I&O- Last 24 Hours up to 6 AM 03/06/20 06:00 Intake Total 0 ml Output Total 150 ml Balance -150 ml Laboratory Data Labs 24H Laboratory Tests 2 03/05/20 13:26: Blood Gas Bicarbonate Standard 25.1, Arterial Blood pH 7.469H, Arterial Blood Partial Pressure CO2 33.4L, Arterial Blood Partial Pressure O2 70.0L, Arterial Blood Total CO2 24.7, Arterial Blood HCO3 23.7, Arterial Blood Base Excess 0.8, Arterial Blood Oxygen Saturation 94.9L 03/05/20 13:32: Immature Granulocyte % (Auto) 0.9, Neutrophils (%) (Auto) 69.6H, Lymphocytes (%) (Auto) 17.5L, Monocytes (%) (Auto) 10.4H, Eosinophils (%) (Auto) 1.2, Basophils (%) (Auto) 0.4, Neutrophils # (Auto) 5.5, Lymphocytes # (Auto) 1.4L, Monocytes # (Auto) 0.8, Eosinophils # (Auto) 0.1, Basophils # (Auto) 0.0, Nucleated Red Blood Cells % (auto) 0.0, Anion Gap 5L, Glomerular Filtration Rate > 60.0, Lactic Acid Level 1.9, Calcium Level 8.7L, Total Bilirubin 0.8, Direct Bilirubin 0.4H, Aspartate Amino Transf (AST/SGOT) 40H, Alanine Aminotransferase (ALT/SGPT) 39, Alkaline Phosphatase 50, Total Creatine Kinase 96, Creatine Kinase MB < 1.0, Creatine Kinase MB Relative Index 1.04, Troponin I < 0.02, KN-Qum-S-Type Natriuretic Peptide 69, Total Protein 7.3, Albumin 3.4, Albumin/Globulin Ratio 0.9, Coronavirus (COVID-19)(PCR) POSITIVEA, Influenza Type A (RT-PCR) NEGATIVE, Influenza Type B (RT-PCR) NEGATIVE, Respiratory Syncytial Virus (PCR) NEGATIVE 03/05/20 19:42: Erythrocyte Sedimentation Rate 49H, C-Reactive Protein, Quantitative 6.09H, Procalcitonin <0.05 03/05/20 23:59: Methicillin-Resist S.aureus DNA PCR NOT DETECTED 03/06/20 07:28: 03/06/20 08:15: Immature Granulocyte % (Auto) 0.8, Neutrophils (%) (Auto) 66.8H, Lymphocytes (%) (Auto) 17.8L, Monocytes (%) (Auto) 11.7H, Eosinophils (%) (Auto) 2.3, Basophils (%) (Auto) 0.6, Neutrophils # (Auto) 4.2, Lymphocytes # (Auto) 1.1L, Monocytes # (Auto) 0.7, Eosinophils # (Auto) 0.1, Basophils # (Auto) 0.0, Nucleated Red Blood Cells % (auto) 0.0, Prothrombin Time 15.7H, Prothromb Time International Ratio 1.22, Activated Partial Thromboplast Time 31.9, Fibrinogen 707H, D-Dimer, Quantitative 702.04H, Anion Gap 10, Glomerular Filtration Rate > 60.0, Calcium Level 8.4L, Magnesium Level 2.4, Total Bilirubin 0.8, Aspartate Amino Transf (AST/SGOT) 40H, Alanine Aminotransferase (ALT/SGPT) 36, Alkaline Phosphatase 45, Lactate Dehydrogenase 303H, Troponin I < 0.02, C-Reactive Protein, Quantitative 5.69H, LD-Mmp-W-Type Natriuretic Peptide 77, Total Protein 6.4, Albumin 3.0L, Albumin/Globulin Ratio 0.9 CBC/BMP Laboratory Tests 03/05/20 13:32 03/06/20 08:15 Microbiology Microbiology 03/05/20 Blood Culture, Received Pending Discharge Medications Scheduled Prednisone (Prednisone) 20 Mg Tablet, 20 MG PO BID Scheduled PRN Albuterol Sulfate (Proair Hfa) 8.5 Gm Hfa.aer.ad, 2 PUFF INH Q4-6HP PRN for wheezing Omeprazole (Omeprazole) 20 Mg Cap, 20 MG PO DAILY PRN for HEARTBURN, (Reported) Allergies Coded Allergies: No Known Allergies (Unverified , 03/30/19) YAYA AQUINO MD Mar 06, 2020 12:56
[2020-03-10 08:06] LABS: BODY FLUID CULTURE Not indicated. (.); LEGIONELLA ANTIGEN URINE Negative (Negative); ORGANISM ID Not indicated. (.); SPECIMEN SOURCE Urine (.); URINE STREP PNEUMONIAE ANTIGEN Negative (Negative)
== END 2020-03-06 16:25 | disposition home or self-care (01) ==
LOC: M ED 12:26 → M ED INP 17:43 → M 4MAIN 23:03
PROVIDERS: ADMIT Family Medicine; ATTEND Family Medicine
DX: U07.1 COVID-19 (principal); J12.89 Other viral pneumonia; I51.7 Cardiomegaly; K21.9 Gastro-esophageal reflux disease without esophagitis; Z79.52 Long term (current) use of systemic steroids; Z79.899 Other long term (current) drug therapy; E66.9 Obesity, unspecified
CPT/HCPCS: 36415; 36600; 71045; 71275; 80048; 80053; 80076; 82550; 82553; 82803; 83605; 83615; 83735; 83880; 84145; 84484; 85025; 85049; 85379; 85384; 85610; 85652; 85730; 86140; 87040; 87449; 87631; 87641; 87899; 93005; 93041; 93970; 94640; 96372; 96374; 96375; 99285; J1650; J2920; Q9967

== ENCOUNTER → 2020-09-09 | Outpatient (CLI) | payer OTHER ==
[~2020-09-09] MED LIST changes: +PRED20TA PO; +PROAAER10 INH
--- NOTE | 2020-09-09 13:22 | REP ---
INDICATION: LOWER LEG PAIN, SWELLING, S/P KNEE REPLAC, R/O DVT COMPARISON: None. TECHNIQUE: Ramírez scale and color Doppler evaluation using linear high frequency transducer. FINDINGS: Ultrasound examination of the left lower extremity deep venous structures from the common femoral vein through the calf/ankle to include the peroneal, and tibial veins demonstrates normal compressibility flow and wave patterns in response to respiration and augmentation. There is no evidence for deep venous thrombosis. Contralateral CFV is patent and normal. IMPRESSION: No evidence for deep venous thrombosis. <Electronically signed by Tay Pandya > 09/09/20 [id number]
== END ==
LOC: M RAD 12:02
PROVIDERS: ATTEND Nurse Practitioner Adult Health
DX: M79.662 Pain in left lower leg (principal); M79.89 Other specified soft tissue disorders; M25.562 Pain in left knee; Z96.659 Presence of unspecified artificial knee joint

== ENCOUNTER → 2020-11-07 | Outpatient (CLI) | payer OTHER ==
[2020-11-07 07:41] LABS: ALT/SGPT 42 U/L (12-78); BILIRUBIN,TOTAL 0.5 MG/DL (0.2-1.0); BLOOD UREA NITROGEN 11 MG/DL (7-18); CARBON DIOXIDE LEVEL 24 MEQ/L (21-32); CHLORIDE LEVEL 111 MEQ/L (98-107); CHOLESTEROL LEVEL 191 MG/DL (<200); CREATININE FOR GFR 0.85 MG/DL (0.70-1.30); GLOMERULAR FILTRATION RATE > 60.0 (>49); GLUCOSE, FASTING 101 MG/DL (70-100); POTASSIUM SERUM 3.8 MEQ/L (3.5-5.1); SODIUM LEVEL 142 MEQ/L (136-145); TRIGLYCERIDES LEVEL 136 MG/DL (<150)
[2020-11-07 07:42] LABS: ALBUMIN 3.4 GM/DL (3.2-5.2); CHOLESTEROL RISK RATIO 5.305 (<5); HDL CHOLESTEROL 36 MG/DL (>40); LDL CHOLESTEROL 128 MG/DL (<100); NON-HDL-C 155 MG/DL; TOTAL PROTEIN 6.7 GM/DL (6.4-8.2)
[2020-11-07 09:40] LABS: HEPATITIS C VIRUS ABY INDEX < 0.0 INDEX (<0.8); HIV SCREEN CENTAUR SOURCE NEGATIVE (NEGATIVE)
== END ==
LOC: M LAB 06:44
PROVIDERS: ATTEND Family Medicine
DX: Z11.4 Encounter for screening for human immunodeficiency virus [HIV] (principal)

== ENCOUNTER → 2021-11-27 | Outpatient (REF) | payer OTHER | LOC: M WUC 22:26 | PROVIDERS: ATTEND Physician Assistant | DX: R31.9 Hematuria, unspecified (principal) ==

== ENCOUNTER → 2021-11-27 | Outpatient (CLI) | payer OTHER | LOC: M RAD 18:01 | PROVIDERS: ATTEND Physician Assistant | DX: M54.50 Low back pain, unspecified (principal); N20.1 Calculus of ureter ==

== ENCOUNTER → 2021-12-10 | Outpatient (CLI) | payer OTHER | LOC: M RAD 08:36 | PROVIDERS: ATTEND Nurse Practitioner Women's Health | DX: N13.2 Hydronephrosis with renal and ureteral calculous obstruction (principal); R10.9 Unspecified abdominal pain ==

== ENCOUNTER → 2021-12-10 | Outpatient (REF) | payer OTHER | LOC: M SMT 17:06 | PROVIDERS: ATTEND Urology | DX: N20.0 Calculus of kidney (principal) ==

== ENCOUNTER 2021-12-20 13:39 | Inpatient (IN) | payer OTHER ==
[~2021-12-20] VITALS: Ht 167.6 cm; Wt 118.4 kg
[2021-12-20 16:12] LABS: BASO # 0.1 10^3/uL (0.0-0.2); BASO % 0.4 % (0.0-1.0); EOS # 0.1 10^3/uL (0.0-0.5); EOS % 0.4 % (0.0-3.0); HEMATOCRIT 46.1 % (42.0-52.0); HEMOGLOBIN 15.9 g/dl (13.5-17.5); LYMPH # 1.3 10^3/uL (1.5-5.0); LYMPH % 10.6 % (24.0-44.0); MEAN CORPUSCULAR HEMOGLOBIN 31.9 pg (27.0-33.0); MEAN CORPUSCULAR HGB CONC 34.5 g/dl (32.0-36.5); MEAN CORPUSCULAR VOLUME 92.4 fl (80.0-96.0); MONO # 0.4 10^3/uL (0.0-0.8); MONO % 3.1 % (2.0-8.0); NEUTROPHILS # 10.3 10^3/uL (1.5-8.5); NEUTROPHILS % 85.2 % (36.0-66.0); PLATELET COUNT, AUTOMATED 306 10^3/uL (150-450); RED BLOOD COUNT 4.99 10^6/uL (4.30-6.10); WHITE BLOOD COUNT 12.1 10^3/uL (4.0-10.0)
[2021-12-20 16:50] LABS: BLOOD UREA NITROGEN 17 MG/DL (7-18); CALCIUM LEVEL 9.4 MG/DL (8.8-10.2); CARBON DIOXIDE LEVEL 24 MEQ/L (21-32); CHLORIDE LEVEL 109 MEQ/L (98-107); CREATININE FOR GFR 0.95 MG/DL (0.70-1.30); GLOMERULAR FILTRATION RATE > 60.0 (>49); GLUCOSE, FASTING 140 MG/DL (70-100); POTASSIUM SERUM 4.2 MEQ/L (3.5-5.1); SODIUM LEVEL 138 MEQ/L (136-145)
[2021-12-20] MEDS ORDERED: ISOVUE-370 76% 100ML VIAL As Ordered ONE (16:55)
[2021-12-20] MEDS ORDERED: MIDAZOLAM INJ 2MG/2ML VIAL (J2250 PER 1MG) IV STA ×2 (19:27)
[2021-12-20] MEDS ORDERED: ASPIRIN 81 MG CHEW TABLET PO ONE (22:00)
[2021-12-20] MEDS ORDERED: AMLO1TAB25 PO (22:41)
[2021-12-20] MEDS ORDERED: HOME MED LIST COMPLETE! XX SCH (22:45)
[2021-12-21] VITALS (9 sets, daily range): BP systolic 135–160; BP diastolic 73–77; O2SAT 94
[2021-12-21 00:34] LABS: RSV AMPLIFICATION NEGATIVE (NEGATIVE)
[2021-12-21] MEDS: ATORVASTATIN 20 MG TAB PO SCH ×2 (03:02→21:02)
[2021-12-21 04:41] LABS: BASO # 0.1 10^3/uL (0.0-0.2); BASO % 0.6 % (0.0-1.0); EOS # 0.3 10^3/uL (0.0-0.5); EOS % 3.2 % (0.0-3.0); HEMATOCRIT 44.4 % (42.0-52.0); LYMPH # 1.6 10^3/uL (1.5-5.0); LYMPH % 19.2 % (24.0-44.0); MEAN CORPUSCULAR HEMOGLOBIN 31.1 pg (27.0-33.0); MEAN CORPUSCULAR HGB CONC 33.8 g/dl (32.0-36.5); MEAN CORPUSCULAR VOLUME 92.1 fl (80.0-96.0); MONO # 0.8 10^3/uL (0.0-0.8); MONO % 10.3 % (2.0-8.0); NEUTROPHILS # 5.4 10^3/uL (1.5-8.5); NEUTROPHILS % 66.5 % (36.0-66.0); PLATELET COUNT, AUTOMATED 310 10^3/uL (150-450); RED BLOOD COUNT 4.82 10^6/uL (4.30-6.10); WHITE BLOOD COUNT 8.2 10^3/uL (4.0-10.0)
[2021-12-21] MEDS: HEPARIN SOD (PORCINE) 5000UNITS/ML 1ML VIAL/SYRINGE SQ SCH ×3 (04:47→21:02)
[2021-12-21 05:00] LABS: HEMOGLOBIN A1c 5.9 %
[2021-12-21 05:25] LABS: BLOOD UREA NITROGEN 17 MG/DL (7-18); CALCIUM LEVEL 9.3 MG/DL (8.8-10.2); CARBON DIOXIDE LEVEL 26 MEQ/L (21-32); CHLORIDE LEVEL 110 MEQ/L (98-107); CHOLESTEROL LEVEL 186 MG/DL (<200); CHOLESTEROL RISK RATIO 5.314 (<5); CREATININE FOR GFR 0.95 MG/DL (0.70-1.30); GLOMERULAR FILTRATION RATE > 60.0 (>49); GLUCOSE, FASTING 110 MG/DL (70-100); HDL CHOLESTEROL 35 MG/DL (>40); LDL CHOLESTEROL 115 MG/DL (<100); NON-HDL-C 151 MG/DL; POTASSIUM SERUM 3.5 MEQ/L (3.5-5.1); SODIUM LEVEL 140 MEQ/L (136-145); TRIGLYCERIDES LEVEL 181 MG/DL (<150)
[2021-12-21] MEDS: OMEPRAZOLE 20MG CAP PO SCH (07:54)
[2021-12-21] MEDS: ASPIRIN 81 MG CHEW TABLET PO SCH (07:54)
[2021-12-21] MEDS ORDERED: ASPI325T62 PO (15:49)
[2021-12-21] MEDS ORDERED: ATOR80TA59 PO (15:49)
[2021-12-22] VITALS: BP 145/46
[2021-12-22 04:00] VITALS: BP 128/72
[2021-12-22] MEDS: HEPARIN SOD (PORCINE) 5000UNITS/ML 1ML VIAL/SYRINGE SQ SCH ×2 (05:40→14:00)
[2021-12-22 06:08] LABS: BASO # 0.1 10^3/uL (0.0-0.2); BASO % 0.9 % (0.0-1.0); EOS # 0.2 10^3/uL (0.0-0.5); EOS % 3.3 % (0.0-3.0); HEMATOCRIT 45.2 % (42.0-52.0); HEMOGLOBIN 15.1 g/dl (13.5-17.5); LYMPH # 1.8 10^3/uL (1.5-5.0); LYMPH % 24.6 % (24.0-44.0); MEAN CORPUSCULAR HEMOGLOBIN 31.7 pg (27.0-33.0); MEAN CORPUSCULAR HGB CONC 33.4 g/dl (32.0-36.5); MONO # 0.6 10^3/uL (0.0-0.8); MONO % 8.4 % (2.0-8.0); NEUTROPHILS # 4.6 10^3/uL (1.5-8.5); NEUTROPHILS % 62.5 % (36.0-66.0); PLATELET COUNT, AUTOMATED 304 10^3/uL (150-450); RED BLOOD COUNT 4.76 10^6/uL (4.30-6.10); WHITE BLOOD COUNT 7.4 10^3/uL (4.0-10.0)
[2021-12-22 06:53] LABS: ALBUMIN 3.5 GM/DL (3.2-5.2); ALT/SGPT 47 U/L (12-78); BILIRUBIN,TOTAL 0.9 MG/DL (0.2-1.0); BLOOD UREA NITROGEN 22 MG/DL (7-18); CALCIUM LEVEL 9.1 MG/DL (8.8-10.2); CARBON DIOXIDE LEVEL 25 MEQ/L (21-32); CHLORIDE LEVEL 112 MEQ/L (98-107); CREATININE FOR GFR 1.03 MG/DL (0.70-1.30); GLOMERULAR FILTRATION RATE > 60.0 (>49); GLUCOSE, FASTING 120 MG/DL (70-100); POTASSIUM SERUM 4.2 MEQ/L (3.5-5.1); SODIUM LEVEL 142 MEQ/L (136-145); TOTAL PROTEIN 6.8 GM/DL (6.4-8.2)
[2021-12-22] MEDS: OMEPRAZOLE 20MG CAP PO SCH (07:36)
[2021-12-22] MEDS: ASPIRIN 81 MG CHEW TABLET PO SCH (07:36)
[2021-12-22 08:00] VITALS: BP 139/79
[2021-12-22 12:00] VITALS: BP 142/82
== END 2021-12-22 14:57 | disposition home or self-care (01) | DRG 45 ==
LOC: M ED 13:39 → EDBD 13:39 → M ED INP 23:52 → ENRESERV 12-21 00:51 → M PCU 12-21 02:40
PROVIDERS: ADMIT Family Medicine; ATTEND Family Medicine
DX: I63.89 Other cerebral infarction (principal); I10 Essential (primary) hypertension; K21.9 Gastro-esophageal reflux disease without esophagitis; G47.33 Obstructive sleep apnea (adult) (pediatric); M19.90 Unspecified osteoarthritis, unspecified site; Z96.653 Presence of artificial knee joint, bilateral; Z90.49 Acquired absence of other specified parts of digestive tract

== ENCOUNTER → 2022-04-09 | Outpatient (CLI) | payer OTHER ==
[~2022-04-09] MED LIST changes: +AMLO1TAB25 PO; +ASPI325T62 PO; +ATOR80TA59 PO
[2022-04-09 13:16] LABS: ALBUMIN 4.1 G/DL (3.2-5.2); ALKALINE PHOSPHATASE 75 U/L (46-116); ALT/SGPT 43 U/L (7.0-40); AST/SGOT 40 U/L (<34); BILIRUBIN,TOTAL 0.6 MG/DL (0.3-1.2); BLOOD UREA NITROGEN 13 MG/DL (9-23); CALCIUM LEVEL 9.3 MG/DL (8.3-10.6); CARBON DIOXIDE LEVEL 25 MMOL/L (20-31); CHLORIDE LEVEL 108 MMOL/L (98-107); CHOLESTEROL LEVEL 113 MG/DL (<200); CHOLESTEROL RISK RATIO 2.96 (<5); CREATININE FOR GFR 0.83 MG/DL (0.70-1.30); GLOMERULAR FILTRATION RATE > 60.0 (>49); GLUCOSE, FASTING 100 MG/DL (74-106); HDL CHOLESTEROL 38.1 MG/DL (>40); LDL CHOLESTEROL 55.1 MG/DL (<100); NON-HDL-C 75 MG/DL; POTASSIUM SERUM 4.2 MMOL/L (3.5-5.1); SODIUM LEVEL 140 MMOL/L (136-145); TOTAL PROTEIN 7.2 G/DL (5.7-8.2); TRIGLYCERIDES LEVEL 99 MG/DL (<150)
== END ==
LOC: M WUC 10:11
PROVIDERS: ATTEND Family Medicine
DX: E78.5 Hyperlipidemia, unspecified (principal)

== ENCOUNTER → 2023-01-07 | Outpatient (CLI) | payer OTHER ==
[2023-01-07 14:20] LABS: ALKALINE PHOSPHATASE 81 U/L (46-116); ALT/SGPT 36 U/L (7.0-40); AST/SGOT 37 U/L (<34); BILIRUBIN,TOTAL 0.7 MG/DL (0.3-1.2); BLOOD UREA NITROGEN 17 MG/DL (9-23); CALCIUM LEVEL 9.3 MG/DL (8.3-10.6); CARBON DIOXIDE LEVEL 29 MMOL/L (20-31); CHLORIDE LEVEL 104 MMOL/L (98-107); CHOLESTEROL LEVEL 126 MG/DL (<200); CHOLESTEROL RISK RATIO 3.23 (<5); GLOMERULAR FILTRATION RATE > 60.0 (>49); GLUCOSE, FASTING 94 MG/DL (74-106); LDL CHOLESTEROL 65.6 MG/DL (<100); POTASSIUM SERUM 4.4 MMOL/L (3.5-5.1); SODIUM LEVEL 141 MMOL/L (136-145); TOTAL PROTEIN 7.2 G/DL (5.7-8.2); TRIGLYCERIDES LEVEL 107 MG/DL (<150)
== END ==
LOC: M WUC 09:29
PROVIDERS: ATTEND Family Medicine
DX: E78.5 Hyperlipidemia, unspecified (principal)

== ENCOUNTER → 2023-07-23 | Outpatient (CLI) | payer OTHER ==
[~2023-07-23] MED LIST changes: -ASPI325T62 PO; +BAYE325T PO
== END ==
LOC: M SOG 07:58
PROVIDERS: ATTEND Physician Assistant
DX: M19.041 Primary osteoarthritis, right hand (principal); M19.042 Primary osteoarthritis, left hand

== ENCOUNTER → 2023-09-22 | Outpatient (REF) | payer OTHER ==
[2023-09-22 13:08] LABS: ALKALINE PHOSPHATASE 81 U/L (46-116); ALT/SGPT 40 U/L (7.0-40); AST/SGOT 31 U/L (<34); BILIRUBIN,TOTAL 0.8 MG/DL (0.3-1.2); BLOOD UREA NITROGEN 17 MG/DL (9-23); CALCIUM LEVEL 9.5 MG/DL (8.3-10.6); CARBON DIOXIDE LEVEL 28 MMOL/L (20-31); CHLORIDE LEVEL 108 MMOL/L (98-107); CHOLESTEROL LEVEL 122 MG/DL (<200); CHOLESTEROL RISK RATIO 3.59 (<5); CREATININE FOR GFR 0.92 MG/DL (0.70-1.30); GLOMERULAR FILTRATION RATE > 60.0 (>49); GLUCOSE, FASTING 116 MG/DL (74-106); HDL CHOLESTEROL 33.9 MG/DL (>40); LDL CHOLESTEROL 67.5 MG/DL (<100); NON-HDL-C 88.1 MG/DL; SODIUM LEVEL 142 MMOL/L (136-145); TRIGLYCERIDES LEVEL 103 MG/DL (<150)
== END ==
LOC: M SFHCLERA 07:52
PROVIDERS: ATTEND Family Medicine
DX: E78.5 Hyperlipidemia, unspecified (principal)

== ENCOUNTER 2023-10-29 08:13 | Day surgery (SDC) | payer OTHER ==
[~2023-10-29] VITALS: Ht 167.6 cm; Wt 126.6 kg
[2023-10-29] MEDS: NS 1,000 ML IV ONE (08:31)
[2023-10-29] MEDS ORDERED: LIDOCAINE 2% 100MG/5ML SDV (FOR ANES.) As Ordered ONE (09:40)
[2023-10-29] MEDS ORDERED: propofoL 200 MG/20 ML VIAL As Ordered ONE (09:41)
[2023-10-29 10:33] VITALS: BP 134/80; O2SAT 94
== END 2023-10-29 10:38 | disposition home or self-care (01) ==
LOC: M OPP 08:13
PROVIDERS: ATTEND Internal Medicine Gastroenterology
DX: Z12.11 Encounter for screening for malignant neoplasm of colon (principal); Z86.010 Personal history of colon polyps; D12.0 Benign neoplasm of cecum; D12.5 Benign neoplasm of sigmoid colon; K64.8 Other hemorrhoids; K57.30 Diverticulosis of large intestine without perforation or abscess without bleeding; G47.30 Sleep apnea, unspecified; Z99.89 Dependence on other enabling machines and devices; I10 Essential (primary) hypertension; Z79.02 Long term (current) use of antithrombotics/antiplatelets; Z79.82 Long term (current) use of aspirin; Z79.899 Other long term (current) drug therapy

== ENCOUNTER 2024-03-20 07:00 | Day surgery (SDC) | payer OTHER ==
[~2024-03-20] VITALS: Ht 167.6 cm; Wt 59.3 kg
[~2024-03-20 07:00] MED LIST changes: +LIDOCAINE W/EPINEPHRINE 1% 20ML VIAL XX ONE; +LISI10TA22 PO; +SODIUM BICARBONATE 8.4% INJ 50MEQ 50ML VIAL XX ONE
[2024-03-20] MEDS: BACITRACIN OINTMENT 30GM TUBE As Ordered ONE (09:28)
[2024-03-20 09:40] VITALS: BP 162/82; TEMP 97.7; O2SAT 96
== END 2024-03-20 10:03 | disposition home or self-care (01) ==
LOC: M SDC 07:00
PROVIDERS: ATTEND Orthopaedic Surgery Hand Surgery
DX: M65.342 Trigger finger, left ring finger (principal); I10 Essential (primary) hypertension; E78.00 Pure hypercholesterolemia, unspecified; M19.90 Unspecified osteoarthritis, unspecified site; G47.30 Sleep apnea, unspecified; Z79.899 Other long term (current) drug therapy; Z79.82 Long term (current) use of aspirin; Z86.73 Personal history of transient ischemic attack (TIA), and cerebral infarction without residual deficits; K21.9 Gastro-esophageal reflux disease without esophagitis; Z90.89 Acquired absence of other organs; Z96.653 Presence of artificial knee joint, bilateral

== ENCOUNTER → 2024-12-18 | Outpatient (REF) | payer OTHER ==
[~2024-12-18] MED LIST changes: -FLOM0.4C39 PO; -LIDOCAINE W/EPINEPHRINE 1% 20ML VIAL XX ONE; -SODIUM BICARBONATE 8.4% INJ 50MEQ 50ML VIAL XX ONE; +TAMS-18 PO
[2024-12-18 19:00] LABS: ALT/SGPT 32 U/L (7.0-40); AST/SGOT 33 U/L (<34); CALCIUM LEVEL 9.5 MG/DL (8.3-10.6); CARBON DIOXIDE LEVEL 25 MMOL/L (20-31); CHLORIDE LEVEL 107 MMOL/L (98-107); CHOLESTEROL LEVEL 120 MG/DL (<200); CHOLESTEROL RISK RATIO 3.11 (<5); CREATININE FOR GFR 0.79 MG/DL (0.70-1.30); GLOMERULAR FILTRATION RATE > 90.0 (>49); LDL CHOLESTEROL 56.3 MG/DL (<100); NON-HDL-C 81.5 MG/DL; POTASSIUM SERUM 4.0 MMOL/L (3.5-5.1); SODIUM LEVEL 143 MMOL/L (136-145); TRIGLYCERIDES LEVEL 126 MG/DL (<150)
== END ==
LOC: M SFHCLERA 08:09
PROVIDERS: ATTEND Family Medicine
DX: E78.5 Hyperlipidemia, unspecified (principal)